=== PATIENT | female | born 1985 | race Caucasian/White ===

== ENCOUNTER → 2020-08-25 | Day surgery (SDC) | payer OTHER ==
[~2020-08-25] MED LIST: ABILIFY PO; ADDERALL 20 MG20 MG PO; ASPIRIN325 MG PO; AZELASTINE205.5 MCG/; DICLOFENAC SODI75 MG PO; NORVASC5 MG PO; PERCOCET 5-3251 EACH PO; PRILOSEC20 MG PO; PRISTIQ50 MG PO; REMERON15 MG PO; SINGULAIR10 MG PO; VITAMIN D PO; VRAYLAR1.5 MG PO
[2020-08-25 10:54] LABS: BUN/CREAT RATIO (CALC) 21.9 RATIO; CREATININE 0.64 mg/dL (0.51-0.95); POTASSIUM 4.2 mmol/L (3.5-5.1)
== END | disposition home or self-care (01) ==
LOC: FAS 09:28
PROVIDERS: Orthopaedic Surgery
DX: G56.02 Carpal tunnel syndrome, left upper limb (principal); I10 Essential (primary) hypertension; F43.10 Post-traumatic stress disorder, unspecified; F32.9 Major depressive disorder, single episode, unspecified; F41.9 Anxiety disorder, unspecified; K21.9 Gastro-esophageal reflux disease without esophagitis; F17.210 Nicotine dependence, cigarettes, uncomplicated; Z88.1 Allergy status to other antibiotic agents; Z88.2 Allergy status to sulfonamides; Z79.899 Other long term (current) drug therapy
CPT/HCPCS: 36415; 80048; J1100; J1885; J2250; J2405; J2704; J3010; J7120